=== PATIENT | female | born 1995 | race Caucasian/White ===

== ENCOUNTER 2018-03-13 06:16 | Inpatient (IN) ==
[2018-03-13] MEDS ORDERED: MEPERIDINE 50 MG/1 ML VIAL IV PRN (07:39)
[2018-03-13] MEDS ORDERED: BUTORPHANOL 2 MG/ML VIAL IV PRN (07:39)
[2018-03-13] MEDS ORDERED: ONDANSETRON 4 MG/2 ML VIAL IV PRN (07:39)
[2018-03-13 07:55] LABS: Basophils % 0.2 % (0.0-0.8); Eosinophils % 0.3 % (0.00-10.9); Hematocrit 35.8 VOL% (35.7-47.0); Hemoglobin 11.1 GM/DL (12.0-16.0); Immature Granulocytes % 0.3 %; Immature Granulocytes Absolute 0.03 #; Lymphocytes # 1.8 10*3/uL (1.4-4.0); Lymphocytes % 17.6 % (21.3-54.2); Mean Corpuscular Hemoglobin 25 PG (27-34); Mean Corpuscular Volume 81.4 FL (87-102); Mean Platelet Volume 12.7 FL (9.6-12.0); Monocytes # 0.6 10*3/uL (0.11-0.8); Monocytes % 6.2 % (1.7-12.7); Neutrophils # 7.6 10*3/uL (1.4-7.4); Neutrophils % 75.4 % (38.7-73.9); Platelet Count 215 T/CUMM (130-400); Red Cell Distribution Width 14.5 % (9.3-17.3); White Blood Count 10.1 T/CUMM (4-12)
[2018-03-13] MEDS ORDERED: OXYTOCIN/LR 20 UNIT/1,000 ML BAG IV SCH (08:00)
[2018-03-13] MEDS: LACTATED RINGERS 1,000 ML IV SCH (08:01)
[2018-03-13 08:07] LABS: Albumin 2.7 G/DL (3.4-5.0); Bilirubin,Total 0.4 MG/DL (0.2-1.0); Calcium 8.5 MG/DL (8.5-10.1); Osmolality,Calculated 269.8 MOS/KG (273-304); Potassium 3.9 MMOL/L (3.5-5.1); Total Protein 6.3 G/DL (6.4-8.3)
[2018-03-13] MEDS ORDERED: FAMOTIDINE 20 MG/2 ML VIAL IV ONE (09:04)
[2018-03-13] MEDS ORDERED: CITRIC ACID/SODIUM CITRATE 30 ML UDCUP PO ONE (09:04)
[2018-03-13] MEDS ORDERED: ONDANSETRON 4 MG/2 ML VIAL IV ONE (09:04)
[2018-03-13] MEDS ORDERED: diphenhydrAMINE 50 MG/1 ML VIAL IV PRN ×2 (09:04)
[2018-03-13] MEDS ORDERED: LACTATED RINGERS 1,000 ML IV ONE (09:04)
[2018-03-13] MEDS ORDERED: ePHEDrine 50 MG/ML AMP IV PRN (09:04)
[2018-03-13] MEDS ORDERED: PROMETHAZINE 25 MG/1 ML VIAL IM ONE (09:04)
[2018-03-13] MEDS ORDERED: hydrOXYzine HCL 25 MG/1 ML VIAL IM PRN (09:04)
[2018-03-13] MEDS ORDERED: fentaNYL 2 MCG/ROPIV 0.2% EPID 150 ML EPIDURAL SCH (09:30)
[2018-03-13] MEDS ORDERED: fentaNYL 100 MCG/2 ML VIAL ONE (12:20)
[2018-03-13] MEDS ORDERED: ROPIVACAINE 0.5% 30 ML VIAL ONE (12:21)
[2018-03-13] MEDS ORDERED: miSOPROStol 200 MCG TABLET ONE (13:55)
[2018-03-13] MEDS ORDERED: LIDOCAINE 1% 50 ML VIAL ONE (13:55)
[2018-03-13] MEDS ORDERED: HYDROCORTISONE 2.5% RECTAL CREAM 30 GM TUBE TOP PRN (17:38)
[2018-03-13] MEDS ORDERED: BISACODYL 10 MG SUPP RECTAL PRN (17:38)
[2018-03-13] MEDS ORDERED: WITCH HAZEL PADS 100/JAR TOP PRN (17:38)
[2018-03-13] MEDS ORDERED: oxyCODONE/ACETAMINOPHEN 5-325 MG TABLET PO PRN ×2 (17:38)
[2018-03-13] MEDS ORDERED: LANOLIN 50% CREAM 0.3 OZ TUBE TOP PRN (17:38)
[2018-03-13] MEDS ORDERED: RHO(D) IMMUNE GLOBULIN 300 MCG SYRINGE IM ONE (17:38)
[2018-03-13] MEDS ORDERED: ACETAMINOPHEN 325 MG TABLET PO PRN (17:38)
[2018-03-13] MEDS ORDERED: MEASLES/MUMPS/RUBELLA VACCINE 0.5 ML VIAL SUBCUT ONE (17:38)
[2018-03-13] MEDS ORDERED: BENZOCAINE 20%/MENTHOL 0.5% SPRAY 56 GM CAN TOP PRN (17:38)
[2018-03-13] MEDS ORDERED: IBUPROFEN 800 MG TABLET PO PRN (17:38)
[2018-03-13] MEDS ORDERED: DIPH/TET/ACEL PERT BOOSTER VACCINE 0.5 ML VIAL IM ONE (17:38)
[2018-03-13] MEDS ORDERED: ACETAMINOPHEN/CODEINE 300-30 MG TABLET PO PRN (17:38)
[2018-03-13] MEDS: DOCUSATE SODIUM 100 MG CAPSULE PO SCH (20:36)
[2018-03-14 06:22] LABS: Basophils % 0.2 % (0.0-0.8); Eosinophils # 0.1 10*3/uL (0.0-0.87); Eosinophils % 0.6 % (0.00-10.9); Hematocrit 31.6 VOL% (35.7-47.0); Hemoglobin 9.9 GM/DL (12.0-16.0); Immature Granulocytes % 0.5 %; Immature Granulocytes Absolute 0.06 #; Lymphocytes # 1.5 10*3/uL (1.4-4.0); Lymphocytes % 13.5 % (21.3-54.2); Mean Corpuscular HGB Conc 31.3 GM/DL (32-36); Mean Corpuscular Hemoglobin 25 PG (27-34); Mean Corpuscular Volume 79.6 FL (87-102); Mean Platelet Volume 12.4 FL (9.6-12.0); Monocytes # 0.8 10*3/uL (0.11-0.8); Monocytes % 6.9 % (1.7-12.7); Neutrophils # 8.7 10*3/uL (1.4-7.4); Neutrophils % 78.3 % (38.7-73.9); Platelet Count 183 T/CUMM (130-400); Red Blood Count 3.97 MC/CUMM (3.8-5.5); Red Cell Distribution Width 14.6 % (9.3-17.3); White Blood Count 11.1 T/CUMM (4-12)
[2018-03-14] MEDS: DOCUSATE SODIUM 100 MG CAPSULE PO SCH (09:53)
[2018-03-14 11:20] VITALS: BP 118/78
== END 2018-03-14 13:00 | disposition home or self-care (01) | DRG 560 ==
LOC: N.LDOUT 06:16 → N.LD 06:20 → N.OB 16:34
PROVIDERS: ADMIT Obstetrics & Gynecology; ATTEND Obstetrics & Gynecology

== ENCOUNTER 2020-10-12 06:11 | Inpatient (IN) ==
[2020-10-12] MEDS ORDERED: ONDANSETRON 4 MG/2 ML VIAL IV PRN (06:59)
[2020-10-12] MEDS: LACTATED RINGERS 1,000 ML IV SCH ×2 (07:00→10:05)
[2020-10-12 07:14] LABS: Basophils % 0.2 % (0.0-0.8); Eosinophils % 0.2 % (0.00-10.9); Hematocrit 38.3 VOL% (35.7-47.0); Hemoglobin 12.2 GM/DL (12.0-16.0); Immature Granulocytes % 0.3 %; Immature Granulocytes Absolute 0.03 #; Lymphocytes # 1.6 10*3/uL (1.4-4.0); Lymphocytes % 16.3 % (21.3-54.2); Mean Corpuscular HGB Conc 31.9 GM/DL (32-36); Mean Corpuscular Volume 81.7 FL (87-102); Mean Platelet Volume 11.1 FL (9.6-12.0); Monocytes % 5.3 % (1.7-12.7); Neutrophils % 77.7 % (38.7-73.9); Platelet Count 262 T/CUMM (130-400); Red Blood Count 4.69 MC/CUMM (3.8-5.5); Red Cell Distribution Width 14.7 % (9.3-17.3); White Blood Count 10.1 T/CUMM (4-12)
[2020-10-12 07:35] LABS: Albumin 2.7 G/DL (3.4-5.0); Bilirubin,Total 0.6 MG/DL (0.2-1.0); Calcium 9.1 MG/DL (8.5-10.1); Osmolality,Calculated 269.8 MOS/KG (273-304)
[2020-10-12] MEDS: OXYTOCIN/LR 20 UNIT/1,000 ML BAG IV SCH ×2 (07:56→18:50)
[2020-10-12] MEDS ORDERED: FAMOTIDINE 20 MG/2 ML VIAL IV ONE (09:08)
[2020-10-12] MEDS ORDERED: ePHEDrine 50 MG/ML VIAL IV PRN (09:08)
[2020-10-12] MEDS ORDERED: hydrOXYzine HCL 25 MG/1 ML VIAL IM PRN (09:08)
[2020-10-12] MEDS ORDERED: LACTATED RINGERS 1,000 ML IV ONE (09:08)
[2020-10-12] MEDS ORDERED: PROMETHAZINE 25 MG/1 ML VIAL IM ONE (09:08)
[2020-10-12] MEDS ORDERED: ONDANSETRON 4 MG/2 ML VIAL IV ONE (09:08)
[2020-10-12] MEDS ORDERED: NALOXONE 0.4 MG/ML VIAL IV PRN (09:08)
[2020-10-12] MEDS ORDERED: diphenhydrAMINE 50 MG/1 ML VIAL IV PRN ×2 (09:08)
[2020-10-12] MEDS ORDERED: CITRIC ACID/SODIUM CITRATE 30 ML UDCUP PO ONE (09:08)
[2020-10-12] MEDS ORDERED: fentaNYL 2 MCG/ROPIV 0.2% EPID 100 ML EPIDURAL SCH (09:30)
[2020-10-12 11:53] LABS: Bacteria,Urine Occasional /HPF (Few); Bilirubin,Urine Negative (Negative); Blood, Urine Negative (Negative); Glucose,Urine (UA) Negative (Negative); Ketones,Urine 20 mg/dL (Negative); Nitrite,Urine Negative (Negative); Protein,Urine Negative; Urine Appearance CLEAR (Clear); Urine Color Straw (Yellow); Urine Specific Gravity 1.005 (1.001-1.035); Urine Urobilinogen < 2.0 EU/DL (0.2-1.0); WBC,Urine <1 /HPF (0-6)
[2020-10-12] MEDS ORDERED: METHYLERGONOVINE 0.2 MG/1 ML AMP ONE (12:34)
[2020-10-12] MEDS ORDERED: miSOPROStoL 200 MCG TABLET ONE (12:34)
[2020-10-12] MEDS ORDERED: TRANEXAMIC ACID 1,000 MG/10 ML VIAL ONE (12:34)
[2020-10-12] MEDS ORDERED: CARBOPROST TROMETHAMINE 250 MCG/ML AMP IM ONE (12:35)
[2020-10-12] MEDS ORDERED: SODIUM CHLORIDE 0.9% 0 ML IV ONE (12:36)
[2020-10-12 13:25] LABS: Cord Arterial Blood HCO3 20.2 MMOL/L
[2020-10-12 13:26] LABS: Cord Venous Blood HCO3 24.6 MMOL/L; Cord Venous Blood PCO2 44.9 MMHG; Cord Venous Blood PO2 25.9 MMHG
[2020-10-12] MEDS ORDERED: RHO(D) IMMUNE GLOBULIN 300 MCG SYRINGE IM ONE (16:22)
[2020-10-12] MEDS ORDERED: ACETAMINOPHEN 325 MG TABLET PO PRN (16:22)
[2020-10-12] MEDS ORDERED: OXYTOCIN/LR 20 UNIT/1,000 ML BAG IV ONE (16:22)
[2020-10-12] MEDS ORDERED: MEASLES/MUMPS/RUBELLA VACCINE 0.5 ML VIAL SUBCUT ONE (16:22)
[2020-10-12] MEDS ORDERED: BENZOCAINE 20%/MENTHOL 0.5% SPRAY 56 GM CAN TOP PRN (16:22)
[2020-10-12] MEDS ORDERED: BISACODYL 10 MG SUPP RECTAL PRN (16:22)
[2020-10-12] MEDS ORDERED: LANOLIN 50% CREAM 0.3 OZ TUBE TOP PRN (16:22)
[2020-10-12] MEDS ORDERED: WITCH HAZEL PADS 100/JAR TOP PRN (16:22)
[2020-10-12] MEDS ORDERED: HYDROCORTISONE 2.5% RECTAL CREAM 30 GM TUBE TOP PRN (16:22)
[2020-10-12] MEDS ORDERED: oxyCODONE/ACETAMINOPHEN 5-325 MG TABLET PO PRN ×2 (16:22)
[2020-10-12] MEDS ORDERED: IBUPROFEN 800 MG TABLET PO PRN (16:22)
[2020-10-12] MEDS ORDERED: DIPH/TET/ACEL PERT BOOSTER VACCINE 0.5 ML VIAL IM ONE (16:22)
[2020-10-12] MEDS: DOCUSATE SODIUM 100 MG CAPSULE PO SCH (20:57)
[2020-10-13 05:27] LABS: Basophils % 0.1 % (0.0-0.8); Eosinophils % 0.3 % (0.00-10.9); Hematocrit 30.3 VOL% (35.7-47.0); Immature Granulocytes % 0.4 %; Immature Granulocytes Absolute 0.06 #; Lymphocytes # 1.6 10*3/uL (1.4-4.0); Lymphocytes % 11.9 % (21.3-54.2); Mean Corpuscular Volume 82.1 FL (87-102); Mean Platelet Volume 11.8 FL (9.6-12.0); Monocytes % 5.8 % (1.7-12.7); Neutrophils % 81.5 % (38.7-73.9); Red Cell Distribution Width 14.4 % (9.3-17.3)
[2020-10-13 05:49] LABS: Hemoglobin 9.7 GM/DL (12.0-16.0); Platelet Count 192 T/CUMM (130-400); Red Blood Count 3.69 MC/CUMM (3.8-5.5); White Blood Count 13.7 T/CUMM (4-12)
[2020-10-13] MEDS: DOCUSATE SODIUM 100 MG CAPSULE PO SCH ×2 (11:41→21:02)
[2020-10-13] MEDS: FERROUS SULFATE 325 MG TABLET PO SCH ×2 (21:00→21:02)
[2020-10-14 07:42] VITALS: BP 100/65
[2020-10-14] MEDS: DOCUSATE SODIUM 100 MG CAPSULE PO SCH ×2 (10:10→10:20)
[2020-10-14] MEDS: FERROUS SULFATE 325 MG TABLET PO SCH ×2 (10:10→10:20)
== END 2020-10-14 12:55 | disposition home or self-care (01) | DRG 560 ==
LOC: N.LD 06:11 → N.OB 10-13 14:59
PROVIDERS: ADMIT Obstetrics & Gynecology; ATTEND Obstetrics & Gynecology